=== PATIENT | female | born 1960 | race Caucasian/White ===

== ENCOUNTER 2021-04-05 20:03 | Emergency (ER) | payer OTHER, SELFPAY ==
--- NOTE | ~2021-04-05 | XR_ITS ---
EXAMINATION: XR chest 2V 04/05/2021 20:41 INDICATION: Deep cough for 5 days PROCEDURE: 2 view chest COMPARISON: No prior studies for comparison. FINDINGS: The lungs are clear. The cardiomediastinal silhouette is within normal limits. There are no pleural effusions. There is no pneumothorax suspected. There are surgical clips in the upper abd omen. There is gastric distention with air-fluid level, nonspecific. IMPRESSION: 1: NO ACUTE CARDIOPULMONARY DISEASE. Reviewed, dictated and finalized at location A.
[2021-04-05 20:19] VITALS: BP 133/81; PULSE 94; RESP 18; TEMP 35.7; O2SAT 100
[2021-04-05 20:56] VITALS: BP 128/83; PULSE 84; RESP 16; TEMP 36.4; O2SAT 100
--- NOTE | 2021-04-05 21:38 | ED.GENADULT ---
HPI - General Adult General Chief complaint: Upper Respiratory Infection Stated complaint: need chest xray-covid neg test result-dr sent me Time Seen by Provider: 04/05/21 21:11 History of Present Illness HPI narrative: The patient is a 60-year-old female presents emerged from with chief complaint of cough. Patient reports that for the last 5 days she has had a dry hacking cough reports that she has history of asthma reports that she has had the Pfizer Covid vaccine. Patient reports she was tested for COVID-19 by her primary care physician and the test results came back negative today. Patient denies fever reports cough has been nonproductive. Patient reports symptoms are worsened whenever she coughs and improved whenever she rests Related Data Home Medications Medication Instructions Recorded Confirmed levothyroxine 04/05/21 Allergies Allergy/AdvReac Type Severity Reaction Status Date / Time No Known Allergies Allergy Mild Verified 04/05/21 21:00 Review of Systems Review of Systems: Narrative: A 10 system review of systems was completed on the patient and is negative except for what is stated in the HPI. Nursing and ancillary documentation was reviewed. [facility] Social History Social History Gender identity (if verbalized by the patient): Female Comments Past medical history significant for asthma Social history the patient denies illicit drug use Exam Narrative: Exam Narrative: GENERAL: Well-appearing, well-nourished, and in no acute distress. HEAD: Normocephalic, atraumatic. EYES: PERRLA and EOMI. ENT: Nares clear, no rhinorrhea or epistaxis. Mucous membranes moist. NECK: Supple. CHEST: Clear to auscultation. No respiratory distress. HEART: Regular rate and rhythm. No murmur heard. Normal peripheral pulses. ABDOMEN: Soft, nontender, nondistended, normal active bowel sounds. EXTREMITIES: Normal range of motion. No edema. SKIN: Warm, dry, no rash. NEURO: No focal deficits. Alert and oriented x3. PSYCH: Normal mood and affect. Course Course Emergency Course: Chest x-ray shows no evidence of pneumonia Vital Signs Vital signs: Vital Signs Temperature 35.7 C L 04/05/21 20:19 Pulse Rate 94 04/05/21 20:19 Respiratory Rate 18 04/05/21 20:19 Blood Pressure 133/81 04/05/21 20:19 Pulse Oximetry 100 04/05/21 20:19 Temperature 36.4 C L 04/05/21 20:56 Pulse Rate 84 04/05/21 20:56 Respiratory Rate 16 04/05/21 20:56 Blood Pressure 128/83 04/05/21 20:56 Pulse Oximetry 100 04/05/21 20:56 Medical Decision Making Vital Signs Vital Signs: Vital Signs Temperature 35.7 C L 04/05/21 20:19 Pulse Rate 94 04/05/21 20:19 Respiratory Rate 18 04/05/21 20:19 Blood Pressure 133/81 04/05/21 20:19 Pulse Oximetry 100 04/05/21 20:19 Temperature 36.4 C L 04/05/21 20:56 Pulse Rate 84 04/05/21 20:56 Respiratory Rate 16 04/05/21 20:56 Blood Pressure 128/83 04/05/21 20:56 Pulse Oximetry 100 04/05/21 20:56 Discharge Plan Discharge Clinical Impression: Upper respiratory infection Qualifiers: URI type: unspecified viral URI Qualified Code(s): J06.9 - Acute upper respiratory infection, unspecified Patient Disposition: Home, Self-Care Condition: Stable Instructions: Antibiotic Form, Upper Respiratory Infection (ED) Prescriptions: New benzonatate 200 mg capsule 200 mg PO TID PRN (Reason: cough) Qty: 21 RF: 0 No Action levothyroxine 75 mcg tablet RF: 0 Follow-up/Referrals: Anita,Caismiro Dodd MD [Primary Care Provider] - Time of Disposition: 21:40
[2021-04-05] MEDS: BENZONATATE 100 MG CAPSULE 200 MG PO (22:00)
== END 2021-04-05 22:02 | disposition home or self-care (01) ==
PROVIDERS: Emergency Provider Emergency Medicine; PCP Internal Medicine
DX: J06.9 Acute upper respiratory infection, unspecified (principal); J45.909 Unspecified asthma, uncomplicated
CPT/HCPCS: 71046; 99283; A9270